=== PATIENT | male | born 2000 | race Caucasian/White ===

== ENCOUNTER 2021-12-24 09:58 | Emergency (ER) | payer BC, SELFPAY ==
[2021-12-24] VITALS (8 sets, daily range): BP systolic 100–141; BP diastolic 69–78; PULSE 96–105; RESP 17–20; TEMP 37.4; O2SAT 96
--- NOTE | ~2021-12-24 | XR_ITS ---
EXAMINATION: XR chest 2V 12/24/2021 10:28 INDICATION: Fever and cough PROCEDURE: 2 view chest COMPARISON: No prior studies FINDINGS: The lungs are clear. The cardiomediastinal silhouette is within normal limits. There are no pleural effusions. There is no pneumothorax suspected. IMPRESSION: 1: NO ACUTE CARDIOPULMONARY DISEASE. Reviewed, dictated and finalized at location B.
--- NOTE | 2021-12-24 10:14 | ECG_ITS ---
Measurements Intervals [place] Rate: 122 P: 79 MD: 150 QRS: 88 QRSD: 94 T: 47 QT: 337 QTc: 482 Interpretive Statements SINUS TACHYCARDIA MODERATE T-WAVE ABNORMALITY, CONSIDER LATERAL ISCHEMIA [-0.1+ mV T WAVE IN I/aVL/V5/V6] MODERATE T-WAVE ABNORMALITY, CONSIDER INFERIOR ISCHEMIA [-0.1+ mV T WAVE IN II/aVF] NO PREVIOUS ECG AVAILABLE FOR COMPARISON Electronically Signed On 12-24-2021 16:20:10 CDT by Nghia Mills M.D.
--- NOTE | 2021-12-24 10:46 | ED.FEVER ---
HPI - Fever General Chief Complaint: Fever Stated Complaint: fever/cp Time Seen by Provider: 12/24/21 10:02 History of Present Illness HPI Narrative: 21-year-old male with no medical problems presents to the emergency room with multiple medical complaints. Patient states last night he experienced a fever of a T-max of 106.1, this was associated with occasional nausea and several episodes of nonbilious nonbloody vomiting. States he has been alternating Tylenol and ibuprofen for his fever. Patient states this morning he began experiencing midsternal chest pain, describing it as a sharp, stabbing pain that was worse with breathing and when he stood up. Patient reports chest pain was present for 90 minutes. Also endorses occasional nonproductive cough and diaphoresis for the past couple of days. Related Data Allergies Allergy/AdvReac Type Severity Reaction Status Date / Time No Known Allergies Allergy Verified 12/24/21 10:15 Review of Systems Review of Systems: CONSTITUTIONAL: Reports fever and chills EYES: Denies visual changes, redness, or discharge. ENT: Denies rhinorrhea, congestion, sore throat, or otalgia. CARDIOVASCULAR: Reports chest pain RESPIRATORY: Denies cough or dyspnea. GASTROINTESTINAL: Denies abdominal pain, nausea, vomiting, or diarrhea. GENITOURINARY: Denies dysuria or hematuria. SKIN: Denies rash or itching. MUSCULOSKELETAL: Denies back pain, joint pain, or myalgia. NEUROLOGIC: Denies headache, numbness, dizziness, or weakness. PSYCHIATRIC: Denies anxiety or depression. Exam Narrative: GENERAL: Well-appearing, well-nourished, no physical limitations, and in no acute distress. HEAD: Normocephalic, atraumatic. EYES: Conjunctivae normal, PERRLA and EOMI. ENT: External nose normal, Nares clear, no rhinorrhea or epistaxis. Mucous membranes moist. Oropharynx without tonsillar hypertrophy exudate or other lesions. External ears normal, bilateral TMs normal bilaterally NECK: Supple. No adenopathy or masses. CHEST: Clear to auscultation. No respiratory distress. No wheezes rales or rhonchi. No tenderness. HEART: Regular rate and rhythm. No murmur heard. Normal peripheral pulses. ABDOMEN: Soft, nontender, nondistended, normal active bowel sounds. EXTREMITIES: Normal range of motion. No edema. No clubbing or cyanosis SKIN: Warm, dry, no rash. No noted wounds NEURO: No focal deficits. Alert and oriented x3. MAEW. CN's II-XI intact bilaterally, normal gait PSYCH: Cooperative. Normal mood and affect. Course Vital Signs Vital signs: Vital Signs Temperature 37.4 C 12/24/21 10:10 Pulse Rate 105 H 12/24/21 10:10 Respiratory Rate 18 12/24/21 10:10 Blood Pressure 100/69 12/24/21 10:10 Pulse Oximetry 96 12/24/21 10:10 Oxygen Delivery Room Air 12/24/21 10:10 Temperature 37.4 C 12/24/21 10:10 Pulse Rate 105 H 12/24/21 10:10 Respiratory Rate 18 12/24/21 10:10 Blood Pressure 100/69 12/24/21 10:10 Pulse Oximetry 96 12/24/21 10:10 Oxygen Delivery Room Air 12/24/21 10:10 MDM - Fever MDM Narrative Medical decision making narrative: 21-year-old male presented the emergency room for evaluation of fever of unknown origin. Patient also complained of epigastric chest pain for 90 minutes prior to arrival. Troponin was negative. EKG showed no signs of acute ischemia, however EKG did demonstrate Q waves anteriorly, and a moderate T wave abnormality in the inferior lateral waves. Patient denied abdominal pain, cough, low back pain, dysuria, or open wounds. Patient had reported a T-max of 106, was treated with Tylenol and ibuprofen. Patient is remained afebrile during his ER stay. Chest x-ray showed no acute cardiopulmonary abnormality. UA showed blood in the urine, with +1 leukocytes. Will treat patient for a urinary tract infection. Lab Data Result diagrams: 12/24/21 10:53 12/24/21 10:53 Labs: Lab Results 12/24/21 12/24/21 12/24/21 Range/Units 10
[2021-12-24] MEDS: SODIUM CHLORIDE 0.9% IV 1,000 ML 999 ML IV CONT (10:53)
[2021-12-24 11:09] LABS: Basophils Percent Auto 0.2 % (0.2-1.2); Eosinophils Percent Auto 0.1 % (0-4.4); Hematocrit 44.1 % (42.0-52.0); Hemoglobin 15.4 g/dL (14.0-18.0); Immature Granulocyte Absolute 0.05 K/mm3 (0.00-0.031); Immature Granulocyte Percent A 0.3 % (0-0.5); Lymphocytes Absolute Auto 0.67 K/mm3 (0.9-3.2); Lymphocytes Percent Auto 4.6 % (18.3-44.2); Mean Corpuscular HGB Conc 34.9 g/dl (32-36); Mean Corpuscular Hemoglobin 30.1 pg (26-34); Mean Corpuscular Volume 86.3 fl (80-100); Monocytes Absolute Auto 1.6 K/mm3 (0.1-0.6); Monocytes Percent Auto 11.3 % (2.6-8.5); Neutrophils Absolute Auto 12.1 K/mm3 (1.3-6.7); Neutrophils Percent Auto 83.5 % (45.5-73.1); Platelet Count Result 202 k/mm3 (150-375); Red Blood Count 5.11 M/mm3 (4.6-6.20); Red Cell Distribution Width 12.3 % (11.5-14.5); White Blood Count 14.5 K/mm3 (4.5-10.0)
[2021-12-24 11:10] LABS: Influenza A QL RT-PCR Positive (Negative); Influenza B QL RT-PCR Negative (Negative); SARS-CoV-2 RNA PCR Negative
[2021-12-24 11:18] LABS: Alanine Aminotransferase 34 U/L (6-50); Albumin Level 4.4 g/dL (3.5-5.1); Alkaline Phosphatase 61 U/L (38-126); Anion Gap 16 mmol/L (8-16); Aspartate Amino Transferase 37 U/L (17-59); Bilirubin,Total 0.6 mg/dL (0.2-1.3); Blood Urea Nitrogen 10 mg/dL (9-20); Calcium 8.5 mg/dL (8.4-10.2); Carbon Dioxide 22 mmol/L (22-30); Chloride 100 mmol/L (98-107); Estimated CRCL calculation 130 ml/min; Estimated Glomerular Filt Rate > 60; Glucose 125 mg/dL (65-110); Potassium 3.1 mmol/L (3.4-5.0); Sodium 138 mmol/L (137-145)
[2021-12-24 11:22] LABS: Add Urine Microscopic? YES; Appearance Urine Cloudy (Clear); Bilirubin Urine Negative (Negative); Blood Urine 2+ (Negative); Color Urine Amber (Yellow); Glucose Urine UA Negative (Negative); Ketones Urine Negative (Negative); Leukocyte Esterase Ur Trace LEU/UL (Negative); Mucus Urine Heavy /lpf; Nitrate Urine Negative (Negative); Protein Urine 2+ mg/dL (Negative); Specific Grav Ur 1.033 (1.001-1.035); Urobilinogen Urine Negative mg/dL (<2.0)
[2021-12-24 11:24] LABS: D Dimer 0.47 ug/mL (<0.48)
[2021-12-24 11:30] LABS: Troponin I < 0.012 ng/mL (0.000-0.034)
--- NOTE | 2021-12-24 12:10 | ECG_ITS ---
Measurements Intervals [place] Rate: 103 P: 69 OK: 148 QRS: 69 QRSD: 97 T: 54 QT: 365 QTc: 478 Interpretive Statements SINUS TACHYCARDIA NONSPECIFIC ST & T-WAVE ABNORMALITY ABNORMAL RHYTHM ECG COMPARED TO ECG 12/24/2021 10:05:58 NO SIGNIFICANT CHANGES Electronically Signed On 12-24-2021 16:21:50 CDT by Nghia Mills M.D.
[2021-12-24] MEDS: LIDOCAINE HCL 1% PF 30 ML VIAL (12:24)
[2021-12-24] MEDS: cefTRIAXone 1 GM VIAL IM (12:24)
[2021-12-24 13:42] LABS: Monoscreen Negative (Negative); Negative Monotest Control Negative (Negative); Positive Monotest Control Positive (Positive)
== END 2021-12-24 12:54 | disposition home or self-care (01) ==
PROVIDERS: Emergency Provider Nurse Practitioner Family
DX: R50.9 Fever, unspecified (principal); N39.0 Urinary tract infection, site not specified; R00.0 Tachycardia, unspecified; R94.31 Abnormal electrocardiogram [ECG] [EKG]; Z20.822 Contact with and (suspected) exposure to COVID-19
CPT/HCPCS: 36415; 71046; 80053; 81001; 84484; 85025; 85380; 86308; 87081; 87086; 87502; 87880; 93005; 96360; 96372; 99284; J0696; J7030; U0003; U0005